=== PATIENT | female | born 2000 | race Caucasian/White ===

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

== ENCOUNTER 2019-01-15 13:35 | Inpatient (IN) | payer MEDICAID ==
[~2019-01-15] VITALS: Ht 165.1 cm; Wt 70.5 kg
[~2019-01-15 13:35] MED LIST changes: +IBUPROFEN800 MG PO
[2019-01-15 15:13] LABS: BASOPHILS 0.1 % (0-2); EOSINOPHILS 0.1 % (0-7); HEMOGLOBIN 11.5 g/dL (12-16); IMMATURE GRANULOCYTES 0.3 % (0-5); LYMPHOCYTES 11.7 % (15-50); MCH 30.4 pg (26.0-34.0); MCHC 34.8 g/dL (31.0-37.0); MCV 87.3 fL (80.0-100.0); MONOCYTES 10.6 % (2-11); NEUTROPHILS 77.2 % (40-80); PLATELET COUNT 219 10x3/uL (130-400); RBC 3.78 10x6/uL (4.00-5.40); RDW 13.8 % (11.5-14.5); WBC 11.8 10x3/uL (4.8-10.8)
[2019-01-15 16:27] LABS: APPEARANCE HAZY (CLEAR); BILIRUBIN NEGATIVE (NEGATIVE); COLOR YELLOW (YELLOW); GLUCOSE NEGATIVE (NEGATIVE); KETONE NEGATIVE (NEGATIVE); NITRITE NEGATIVE (NEGATIVE); PROTEIN TRACE mg/dL (NEGATIVE); SPECIFIC GRAVITY 1.015 (1.005-1.020); UROBILINOGEN NORMAL (NORMAL)
[2019-01-15 16:29] LABS: RED CELLS - URINE OCC /hpf (0-5); WHITE CELLS - URINE >50 /hpf (0-5)
[2019-01-15 16:30] LABS: BACTERIA MANY /hpf (NONE SEEN); EPITHELIAL CELLS 0-5 /hpf (0-5)
[2019-01-16 11:22] VITALS: Ht 165.1 cm; Wt 70.5 kg
[2019-01-16 19:58] VITALS: BP 98/57
[2019-01-17 07:10] VITALS: BP 85/48
[2019-01-17] MEDS ORDERED: MACROBID100 MG PO ×2 (08:35→08:37)
== END 2019-01-17 09:31 | disposition home or self-care (01) | DRG 833 ==
LOC: D.LDO 13:35 → D.LD 20:22 → D.WS 01-16 10:13 → D.LDO 01-16 10:13 → D.WS 01-16 11:21
PROVIDERS: ADMIT Student in an Organized Health Care Education/Training Program; ATTEND Student in an Organized Health Care Education/Training Program
DX: O23.42 Unspecified infection of urinary tract in pregnancy, second trimester (principal); B96.20 Unspecified Escherichia coli [E. coli] as the cause of diseases classified elsewhere; O23.02 Infections of kidney in pregnancy, second trimester; Z3A.20 20 weeks gestation of pregnancy

== ENCOUNTER → 2019-05-26 18:19 | Outpatient (CLI) | payer MEDICAID ==
[2019-01-16 11:22] VITALS: BMI 25.8
[~2019-05-26 18:19] MED LIST changes: +MACROBID100 MG PO
== END | disposition home or self-care (01) ==
LOC: D.LDO 18:19
PROVIDERS: ATTEND Student in an Organized Health Care Education/Training Program
DX: O47.9 False labor, unspecified (principal)

== ENCOUNTER 2019-05-31 20:00 | Outpatient (CLI) | payer OTHER ==
[~2019-05-31] VITALS: Ht 165.1 cm; Wt 84.5 kg
[2019-05-31 21:27] LABS: APPEARANCE HAZY (CLEAR); BILIRUBIN NEGATIVE (NEGATIVE); COLOR STRAW (YELLOW); GLUCOSE NEGATIVE (NEGATIVE); KETONE NEGATIVE (NEGATIVE); NITRITE NEGATIVE (NEGATIVE); PROTEIN NEGATIVE (NEGATIVE); UROBILINOGEN NORMAL (NORMAL)
[2019-05-31 21:28] LABS: RED CELLS - URINE 0-5 /hpf (0-5); WHITE CELLS - URINE 0-5 /hpf (NEGATIVE)
[2019-05-31 21:29] LABS: BACTERIA MODERATE /hpf (NEGATIVE); MUCUS <1+ /lpf (NONE SEEN)
[2019-05-31 21:47] LABS: UDS - AMPHET NEGATIVE QUAL (NEGATIVE); UDS - BARB NEGATIVE QUAL (NEGATIVE); UDS - BENZO NEGATIVE QUAL (NEGATIVE); UDS - COCAINE NEGATIVE QUAL (NEGATIVE); UDS - OPIATE NEGATIVE QUAL (NEGATIVE); UDS - PCP NEGATIVE QUAL (NEGATIVE); UDS - THC NEGATIVE QUAL (NEGATIVE)
[2019-05-31 22:41] VITALS: BP 119/78; Ht 165.1 cm; Wt 84.5 kg
== END 2019-06-01 08:45 | disposition home or self-care (01) ==
LOC: D.LDO 20:00 → D.LD 21:53 → D.LDO 06-01 08:45
PROVIDERS: ATTEND Obstetrics & Gynecology
DX: O26.899 Other specified pregnancy related conditions, unspecified trimester (principal); R10.9 Unspecified abdominal pain; Z3A.00 Weeks of gestation of pregnancy not specified

== ENCOUNTER 2019-06-02 05:50 | Inpatient (IN) | payer OTHER ==
[~2019-06-02] VITALS: Ht 165.1 cm; Wt 84.8 kg
--- NOTE | 2019-06-02 06:08 | NUR ---
18G PERIPHERAL IV PLACED TO LEFT FOREARM. AREA CLEANED WITH CHLORHEXIDINE, ONE ATTEMPT, PT TOLERATED IT WELL. TAPED DOWN AND TEGADERM APPLIED. LABS DRAWN AND SENT TO LAB. FLUSHED AND CAPPED.
[2019-06-02 06:18] VITALS: BP 114/68; Ht 165.1 cm; Wt 84.8 kg
[2019-06-02 06:53] LABS: HEMATOCRIT 32.6 % (36.0-48.0); HEMOGLOBIN 10.1 g/dL (12-16); MCH 25.6 pg (26.0-34.0); MCV 82.7 fL (80.0-100.0); MEAN PLATELET VOLUME 9.8 fL (7.4-10.4); RBC 3.94 10x6/uL (4.00-5.40); RDW 15.2 % (11.5-14.5); WBC 11.7 10x3/uL (4.8-10.8)
[2019-06-02 07:13] LABS: UDS - AMPHET NEGATIVE QUAL (NEGATIVE); UDS - BARB NEGATIVE QUAL (NEGATIVE); UDS - BENZO NEGATIVE QUAL (NEGATIVE); UDS - COCAINE NEGATIVE QUAL (NEGATIVE); UDS - OPIATE POSITIVE QUAL (NEGATIVE); UDS - PCP NEGATIVE QUAL (NEGATIVE); UDS - THC NEGATIVE QUAL (NEGATIVE)
[2019-06-02 07:14] LABS: APPEARANCE HAZY (CLEAR); BILIRUBIN NEGATIVE (NEGATIVE); COLOR YELLOW (YELLOW); GLUCOSE NEGATIVE (NEGATIVE); KETONE NEGATIVE (NEGATIVE); NITRITE NEGATIVE (NEGATIVE); PROTEIN TRACE mg/dL (NEGATIVE); SPECIFIC GRAVITY 1.015 (1.005-1.020); UROBILINOGEN NORMAL (NORMAL)
[2019-06-02 07:15] LABS: BACTERIA MODERATE /hpf (NEGATIVE); EPITHELIAL CELLS 0-5 /hpf (0-5); RED CELLS - URINE 0-5 /hpf (0-5)
--- NOTE | 2019-06-02 16:15 | NUR ---
SLEEPING ON LEFT SIDE. RESPIRATIONS EVEN. INFANT IN NURSERY. SIDE RAILS UP X 2, CALL LIGHT IN REACH.
--- NOTE | 2019-06-02 17:46 | NUR ---
TORADOL 10 MG GIVEN PO FOR RELIEF OF 2-3/10 LOWER UTERINE CRAMPING. HAS BEEN UP TO VOID. NO HEAVY BLEEDING. DENIES NEEDING ANYTHING ELSE. FOB AND IN ROOM. FRESH WATER GIVEN. CALL LIGHT IN REACH. TO CALL IF ANYTHING IS NEEDED. VERBALIZED UNDERSTANDING.
--- NOTE | 2019-06-02 19:11 | NUR ---
SITTING UP IN BED TALKING TO FOB. INFANT AND CHILDREN IN ROOM. SAYS SHE IS NO LONGER HAVING PAIN 0/10. DECLINES SCHEDULED TYLENOL. TO CALL IF DESIRES. VERBALIZED UNDERSTANDING. SIDERAILS UP X 2, CALL LIGHT IN REACH.
--- NOTE | 2019-06-02 19:14 | NUR ---
BEDSIDE REPORT REC'D. PT SITTING UP IN BED CONVERSING WITH VISITORS AND OTHER PLAYING WITH OTHER CHILDREN. DENIES PAIN AND REFUSES TYLENOL AT THIS TIME. ICE WATER PROVIDED. DENIES ADDITIONAL NEEDS. BED IN LOW POSITION WITH SRUP X2. CALL LIGHT AND PHONE WITHIN REACH. WILL CONTINUE TO MONITOR.
[2019-06-02 20:27] VITALS: BP 125/83
--- NOTE | 2019-06-02 20:27 | NUR ---
SHIFT ASSESSMENT COMPLETED PER FLOWSHEET. VSS. FUNDUS FIRM, MIDLINE AND U2 WITH SCANT RUBRA LOCHIA, NO CLOTS NOTED. POC DISCUSSED WITH PT AND FOB, VERBALIZE UNDERSTANDING AND DENY QUESTIONS. REQUEST TYLENOL AT THIS TIME FOR ABD CRAMPING AND PROVIDED. ICE WATER PROVIDED. REFUSES SCD'S. DENIES ADDITIONAL NEEDS. BED IN LOW POSITION WITH SRUP X2. CALL LIGHT AND PHONE WITHIN REACH. WILL CONTINUE TO MONITOR.
--- NOTE | 2019-06-02 21:30 | NUR ---
AMBULATORY TO ROOM 1257 FOR CONTINUED PP CARE. STEADY GAIT NOTED. DENIES PAIN AND NEEDS AT THIS TIME. ORIENTED TO ROOM AND CALL LIGHT, VERBALIZES UNDERSTANDING. LINENS AND PILLOWS PROVIDED FOR SIGNIFICANT OTHER. DENIES ADDITIONAL NEEDS. BED IN LOW POSITION WITH SRUP X2. CALL LIGHT AND PHONE WITHIN REACH.
--- NOTE | 2019-06-02 22:54 | NUR ---
ASSISTED WITH GETTING LATCHED FOR BF PER REQUEST. DENIES PAIN AND NEEDS AT THIS TIME. FOB AT BEDSIDE, SUPPORTIVE AND ATTENTIVE TO PT AND NEEDS. ICE WATER AND APPLE JUICE PROVIDED PER PT REQUEST. DENIES ADDITIONAL NEEDS. BED IN LOW POSITION WITH SRUP X2. CALL LIGHT AND PHONE WITHIN REACH. WILL CONTINUE TO MONITOR.
--- NOTE | 2019-06-03 01:18 | NUR ---
ROUNDS MADE. RESTING QUIETLY WITH EYES CLOSED, RESP REGULAR AND UNLABORED, NO S/S OF DISTRESS NOTED. BED IN LOW POSITION WITH SRUP X2. CALL LIGHT AND PHONE WITHIN REACH. WILL CONTINUE TO MONITOR.
--- NOTE | 2019-06-03 02:21 | NUR ---
UP BF INFANT AT THIS TIME. TYLENOL OFFERED ORDERED AND REFUSED, STATES THAT SHE WILL CALL RN IF SHE NEEDS MEDS. ICE WATER PROVIDED, DENIES ADDITIONAL NEEDS. BED IN LOW POSITION WITH SRUP X2. CALL LIGHT AND PHONE WITHIN REACH. WILL CONTINUE TO MONITOR.
--- NOTE | 2019-06-03 04:11 | NUR ---
ROUNDS MADE. PT RESTING QUIETLY ON RIGHT SIDE WITH EYES CLOSED. RESP REGULAR AND UNLABORED, NO S/S OF DISTRESS NOTED. BED IN LOW POSITION WITH SRUP X1. CALL LIGHT AND PHONE WITHIN REACH. INFANT IN NBN. WILL CONTINUE TO MONITOR.
--- NOTE | 2019-06-03 06:08 | NUR ---
AROUSES TO VOICE. 'S ID BAND MATCHED WITH PT AND PLACED IN PT ARMS. DENIES PAIN AND REFUSES TYLENOL ORDERED AT THIS TIME. ICE WATER PROVIDED. DENIES ADDITIONAL NEEDS AT TIME. BED IN LOW POSITION WITH SRUP X2. CALL LIGHT AND PHONE WITHIN REACH. WILL CONTINUE TO MONITOR.
[2019-06-03 06:45] LABS: HEMATOCRIT 28.5 % (36.0-48.0); HEMOGLOBIN 8.7 g/dL (12-16); MCH 25.1 pg (26.0-34.0); MCHC 30.5 g/dL (31.0-37.0); MCV 82.1 fL (80.0-100.0); MEAN PLATELET VOLUME 10.1 fL (7.4-10.4); RBC 3.47 10x6/uL (4.00-5.40); RDW 15.3 % (11.5-14.5); WBC 14.1 10x3/uL (4.8-10.8)
[2019-06-03 07:55] VITALS: BP 135/70
--- NOTE | 2019-06-03 08:00 | NUR ---
TO PT'S ROOM FOR AM ASSESSMENT. PT IS SLEEPING ON HER ABDOMEN IN THE BED, WITH MALE VISITOR ALSO SLEEPING ON HIS BACK IN THE BED WITH HER. LIGHTS ARE LOW IN ROOM. PT'S RESP EVEN AND UL AT 16/MIN. PT NOT DISTUBED AT THIS TIME. SRUP X2, CALL LIGHT AND PHONE WITHIN REACH. ANOTHER MALE VISITOR SLEEPING IN BEDSIDE CHAIR.
[2019-06-03 09:30] VITALS: BP 124/62
--- NOTE | 2019-06-03 09:30 | NUR ---
TO ROOM, AM ASSESSMENT COMPLETED. SEE FLOWSHEET. SEE EMAR FOR ALL MEDS ADM BY THIS RN.
--- NOTE | 2019-06-03 10:15 | NUR ---
PT UP TO BR, VOIDING PER SELF WITHOUT DIFFICULTY. PT STATES SHE DID PASS ONE SMALL, DIME SIZED CLOT. PERIPADS/PANTIES PROVIDED. PT UP TO SHOWER. BED LINENS CHANGED. CLEAN GOWN PROVIDED. PT REQUESTS ICE CHIPS, SERVED. PT DENIES ALL OTHER NEEDS AT THIS TIME. SRUP X2, CALL LIGHT AND PHONE WITHIN REACH. FAMILY AT BEDSIDE. IN CRIB, NO DISTRESS NOTED.
--- NOTE | 2019-06-03 10:20 | NUR ---
DR. ALEGRE ON UNIT, STATES HE WILL DISCHARGE PT HOME TODAY.
--- NOTE | 2019-06-03 14:15 | NUR ---
DR. ALEGRE ON UNIT, TO ROOM TO SPEAK WITH PT.
[2019-06-03] MEDS ORDERED: ACETAMINOPHEN325 MG PO (15:02)
--- NOTE | 2019-06-03 15:21 | NUR ---
DISCHARGE INSTRUCTIONS EXPLAINED TO PT, INCLUDING ACTIVITY AND WARNING SIGNS. VOICED UNDERSTANDING. COPIES OF ALL GIVEN.
--- NOTE | 2019-06-03 15:33 | NUR ---
PT DISCHARGED AMBULATORY TO FRONT DOOR TO PRIVATE CAR. PT DECLINED WHEELCHAIR. FOB CARRIED NEW BORN IN CAR SEAT.
[2019-06-04 08:10] LABS: RAPID PLASMA REAGIN Non Reactive (Non Reactive)
== END 2019-06-03 15:33 | disposition home or self-care (01) | DRG 807 ==
LOC: D.LD 05:50
PROVIDERS: ADMIT Obstetrics & Gynecology; ATTEND Obstetrics & Gynecology
PROC: 10E0XZZ Delivery of Products of Conception, External Approach (ICD-10-PCS; principal; 2019-06-02)
PROC: 3E033VJ Introduction of Other Hormone into Peripheral Vein, Percutaneous Approach (ICD-10-PCS; 2019-06-02)
DX: O99.324 Drug use complicating childbirth (principal); Z37.0 Single live birth; F12.90 Cannabis use, unspecified, uncomplicated; Z3A.39 39 weeks gestation of pregnancy